=== PATIENT | male | born 1930 | race Caucasian/White ===

== ENCOUNTER 2019-01-24 20:21 | Inpatient (IN) | payer MEDICARE, OTHER ==
[2019-01-24] MEDS ORDERED: NS 0.9% 1000 ML** 1,000 ML IV ONE (20:45)
--- OUTSIDE RECORDS SUMMARY | 2019-01-24 20:53 | XMS REPORT | Continuity of Care Document ---
:1930 External Reference #:[id number] Author Name Ronal Jaramillo M.D. (transmitted by agent of provider Abi Boykin ) Address [address] [place] [address] Care Team Providers Name Role Phone Ronal Jaramillo MD - Cardiovascular Care Team Information Music Worker Disease Inderjit Banegas III, MD - Internal Care Team Information Music Worker Medicine Problems Active Problems Provider Date Benign essential hypertension Ronal Jaramillo M.D. Onset: 04/01/2012 Mitral valve disorder Ronal Jaramillo M.D. Onset: 04/01/2012 Coronary arteriosclerosis Ronal Jaramillo M.D. Onset: 04/01/2012 Pure hypercholesterolemia Ronal Jaramillo M.D. Onset: 04/01/2012 Syncope and collapse LAUREN Main Onset: 05/25/2013 Essential hypertension Ronal Jaramillo M.D. Onset: 12/27/2013 Dizziness and giddiness Ronal Jaramillo M.D. Onset: 12/27/2013 Coronary artery bypass grafts x 3 Marko Merritt M.D.,STEVE Onset: 2017 Note: 2001 History of radical retropubic Marko Merritt M.D.,FACP Onset: 06/03/2017 prostatectomy Note: for cancer Social History Type Date Description Comments Sex Unknown Tobacco Use Start: Unknown End: Former Cigarette Smoker Unknown ETOH Use Drinks 2 Alcoholic pt doesn't measure Beverages Per Day the liquor and each drink likely over 2 oz Tobacco Use Start: Unknown End: Patient is a former Unknown smoker Recreational Drug Use Denies Drug Use Tobacco Use Start: Unknown quit at the age of 32 Smoking Status Reviewed: 11/29/18 quit at the age of 32 Exercise Type/Frequency Exercises regularly Treadmill, wt lifting,stretching, one hr 3-4x/wk Allergies, Adverse Reactions, Alerts Description No Known Drug Allergies Medications Active Medications SIG Qnty Indications Ordering Provider Date Amlodipine Besylate 1 by mouth twice 180tabs Ronal Doll 02/19/2014 a day Kelsy Jaramillo 2.5mg Tablets Aspirin Enteric qd Roanl Doll 05/17/2003 Coated Kelsy Jaramillo 81mg Tablets Lipitor one tab by mouth 90tabs Ronal Doll 20mg Tablets every night at Kelsy Jaramillo bedtime Immunizations CPT Code Status Date Vaccine Lot # [id number] Given 08/22/2018 Pneumococcal Conjugate Vaccine 13 Valent For [id number] Intramuscular Use 06091 Given 12/17/2017 Fluzone High Dose 85847 Given 12/03/2016 Influenza Virus Vaccine, Quadrivalent, Split, [id number] Preservative Free Vital Signs Date Vital Result Comment 11/29/2018 9:02am Height 64.5 inches 5'4.50" Weight 140.00 lb Heart Rate 72 /min L, radial, regular BP Systolic 150 mmHg LA, home unit, sitting BP Diastolic 77 mmHg LA, home unit, sitting BP Systolic Sitting 145 mmHg LA, reg cuff BP Diastolic Sitting 80 mmHg LA, reg cuff BP Systolic Standing 145 mmHg LA, reg cuff BP Diastolic Standing 70 mmHg LA, reg cuff BP Systolic Lying Down 139 mmHg la repeat sitting BP Diastolic Lying Down 64 mmHg la repeat sitting BMI (Body Mass Index) 23.7 kg/m2 Ejection Fraction 60-65% 09/28/2018 1:25pm Height 64.5 inches 5'4.50" Heart Rate 68 /min radial, regular BP Systolic 168 mmHg Ra sitting, reg cuff BP Diastolic 72 mmHg Ra sitting, reg cuff BP Systolic Sitting 166 mmHg LA sitting, reg cuff BP Diastolic Sitting 70 mmHg LA sitting, reg cuff BP Systolic Standing 170 mmHg Ra sitting, home cuff BP Diastolic Standing 80 mmHg Ra sitting, home cuff BP Systolic Lying Down 159 mmHg LA sitting, home cuff BP Diastolic Lying Down 73 mmHg LA sitting, home cuff BP Systolic Recheck 168 mmHg LA standing, reg cuff BP Diastolic Recheck 74 mmHg LA standing, reg cuff Results Test Date Facility Test Result H/L Range Note Comp Metabolic 08/17/2018 [facility] Sodium 140 mmol/L Normal 135-[address] [place] [address] [phone] Potassium 4.9 mmol/L Normal 3.5-5.0 Chloride 104 mmol/L Normal 101-111 Co2 Carbon Dioxide 30 mmol/L Normal 22-32 Anion Gap 6 mmol/L Normal 2-11 Glucose 92 mg/dL Normal 70-100 Blood Urea Nitrogen 18 mg/dL Normal 6-24 Creatinine 0.90 mg/dL Normal 0.67-1.17 BUN/Creatinine Ratio 20.0 Normal 8-20 Calcium 9.1 mg/dL Normal 8.6-10.3 Total Protein 6.9 g/dL Normal 6.4-8.9 Albumin 4.2 g/dL Normal 3.2-5.2 Globulin 2.7 g/dL Normal 2-4 Albumin/Globulin Ratio 1.6 Normal 1-3 Total Bilirubin 1.30 mg/dL High 0.2-1.0 Alkaline Phosphatase 94 U/L Normal 34-104 Alt 16 U/L Normal 7-52 Ast 23 U/L Normal 13-39 Egfr Non- 79.6 >60 Egfr 96.4 >60 1 1 Because ethnic data is not always readily available, this report includes an eGFR for both -Americans and non- Americans. The National Kidney Disease Education Program (NKDEP) does not endorse the use of the MDRD equation for patients that are not between the ages of 18 and 70, are , have extremes of body size, muscle mass, or nutritional status, or are non- or non-. According to the National Kidney Foundation, irrespective of diagnosis, the stage of the disease is based on the level of kidney function: Stage Description GFR(mL/min/1.73 m(2)) 1 Kidney damage with normal or decreased GFR 90 2 Kidney damage with mild decrease in GFR 60-89 3 Moderate decrease in GFR 30-59 4 Severe decrease in GFR 15-29 5 Kidney failure <15 (or dialysis) Procedures Date Code Description Status 11/29/2018 41911 EKG Tracing & Interpretation Completed 03/11/2010 17853042 Colonoscopy Completed 05/18/2002 29471536 Colonoscopy Completed Medical Devices Description No Information Available Encounters Type Date Location Provider Dx Diagnosis Office Visit 09/28/2018 [facility] Nurse Visit cc I10 Essential ( primary) 1:00p hypertension Assessments Date Code Description Provider 11/29/2018 I10 Essential (primary) hypertension Ronal Jaramillo M.D. 11/29/2018 E78.00 Pure hypercholesterolemia, unspecified Ronal Jaramillo M.D. 11/29/2018 I35.0 Nonrheumatic aortic (valve) stenosis Ronal Jaramillo M.D. 11/29/2018 I25.10 Coronary atherosclerosis Ronal Jaramillo M.D. 11/29/2018 I44.0 First degree atrioventricular block Ronal Jaramillo M.D. 09/28/2018 I10 Essential (primary) hypertension Nurse Visit cc 08/22/2018 Z00.00 Encounter for general adult medical Inderjit Banegas M.D. examination without abno 08/22/2018 I10 Essential (primary) hypertension Inderjit Banegas M.D. 08/22/2018 I25.10 Atherosclerotic heart disease of upper [place] Inderjit Banegas M.D. coronary artery with 08/22/2018 E78.00 Pure hypercholesterolemia, unspecified Inderjit Banegas M.D. 08/22/2018 Z85.46 Personal history of malignant neoplasm of Inderjit Banegas M.D. prostate 08/22/2018 Z23 Encounter for immunization Inderjit Banegas M.D. Plan of Treatment Future Appointment(s):12/02/2018 10:00 am - [facility] ECHO Schedule at [facility]08/24/2019 1:20 pm - Inderjit Banegas M.D. at [facility]-Znbuqieiw58/08/2019 - Ronal Jaramillo M.D.I10 Essential ( primary) [id number] Pure hypercholesterolemia, gvfdbvcskhwI48.0 Nonrheumatic aortic (valve) stenosisNew Orders:Echocardiogram, Scheduled: I25.10 Coronary atherosclerosisNew Orders:Stress Test, Exercise Nuclear, Ordered: 11/29/18Follow up:ov 10 mI44.0 First degree atrioventricular block Functional Status Description No Information Available Mental Status Description No Information Available Referrals Description No Information Available
--- NOTE | 2019-01-24 21:03 | ED ---
Complex/Multi-Sys Presentation - HPI Summary HPI Summary: Patient is an 88 y/o M presenting to [facility] via EMS with complaints of light- headedness and near syncopal episode. He states that he has been feeling fatigued all day, 01/24/19. He states that he was in his living room, sitting at a table and waiting for dinner when the episode occurred. Family called EMS. It is reported that the patient was diaphoretic, pale-appearing, and with decreased responsiveness. Currently, the patient states that he feels "weak". This weakness is characterized as a general, non-focal weakness. He is alert and oriented x3. CP, SOB, NUNEZ, cold Sx, abdominal pain, nausea, urinary retention , BLE edema are denied. On triage, pain is denied, nothing is noted to aggravate /alleviate Sx. PMHx of HTN reported, diabetes denied. PSHx of cardiac bypass 20 years ago stated. Home medications and allergies are reviewed. - History Of Current Complaint Chief Complaint: EDSyncope Time Seen by Provider: 01/24/19 20:40 Hx Obtained From: Patient Onset/Duration: Lasting Days - fatigue, Still Present - fatigue, Resolved - no longer diaphoretic, pale-appearing, and with decreased responsiveness Timing: Intermittent, Lasting: Severity Currently: None - pain denied Aggravating Factor(s): nothing Alleviating Factor(s): nothing Associated Signs And Symptoms: Positive: Other - positive - near syncope, light- headedness, diaphoretic, pale-appearing, decerased responsiveness since resolved ; negative - CP, SOB, NUNEZ, cold Sx, abdominal pain, nausea, urinary retention, BLE edema. Negative: Headache, SOB, Chest Pain, Edema, Nausea, Abdominal Pain - Allergies/Home Medications Allergies/Adverse Reactions: Allergies Allergy/AdvReac Type Severity Reaction Status Date / Time No Known Allergies Allergy Verified 01/24/19 22:21 Home Medications: Home Medications Amlodipine Besylate [Amlodipine 2.5 mg tab] 2.5 mg PO DAILY 01/24/19 [History Confirmed 01/24/19] PMH/Surg Hx/FS Hx/Imm Hx Cardiovascular History: Reports: Hx Hypertension, Other Cardiovascular Problems/ Disorders - vaso-vagal History: Reports: Hx Benign Prostatic Hyperplasia, Other Problems/ Disorders - prostate CA c/incontinence Musculoskeletal History: Reports: Hx Arthritis Sensory History: Reports: Hx Contacts or Glasses, Hx Hearing Aid - ai., Hx Hearing Problem Opthamlomology History: Reports: Hx Contacts or Glasses - Cancer History Cancer Type, Location and Year: prostate - Surgical History Surgery Procedure, Year, and Place: CABG quad 1999, radical prostatectomy 2000 Infectious Disease History: No Infectious Disease History: Reports: Traveled Outside the [place] in Last 30 Days - [place], [place] - Family History Known Family History: Negative: Cardiac Disease, Hypertension, Diabetes - Social History Alcohol Use: Daily Alcohol Amount: glass of wine with dinner Substance Use Type: Reports: None Smoking Status (MU): Former Smoker Type: Cigarettes Amount Used/How Often: 1pk per day Length of Time of Smoking/Using Tobacco: 10years Have You Smoked in the Last Year: No Review of Systems Positive: Skin Diaphoresis ENT: Other - neg - cold Sx Negative: Chest Pain Negative: Shortness Of Breath Negative: Abdominal Pain, Nausea Genitourinary: Other - neg - urinary retention Negative: Edema - BLE Skin: Other - pos - pale appearing Neurological: Other - pos - decreased responsiveness and light-headedness Positive: Syncope - near . Negative: Headache All Other Systems Reviewed And Are Negative: Yes Physical Exam - Summary Physical Exam Summary: Appearance: Well-appearing, Well-nourished, lying in bed comfortably Skin: Warm, dry, no obvious rash Eyes: sclera anicteric, no conjunctival pallor ENT: mucous membranes moist, pharynx appears normal Neck: Supple, nontender Respiratory: Clear to auscultation, no signs of respiratory distress Cardiovascular: Normal S1, S2. No murmurs. Normal distal pulses in tibial and radial bilaterally. Abdomen: Soft, nontender, normal active bowel sounds present Musculoskeletal: Normal, Strength/ROM Intact Neurological: A&Ox3, awake and alert, mentation is normal, speech is fluent and appropriate Psychiatric: affect is normal, does not appear anxious or depressed Triage Information Reviewed: Yes Vital Signs On Initial Exam: Initial Vitals Temp Pulse Resp BP Pulse Ox 98.0 F 64 18 161/64 95 01/24/19 20:36 01/24/19 20:36 01/24/19 20:36 01/24/19 20:36 01/24/19 20:36 Vital Signs Reviewed: Yes Procedures - Sedation Patient Received Moderate/Deep Sedation with Procedure: No Diagnostics - Vital Signs Vital Signs Temp Pulse Resp BP Pulse Ox 01/24/19 20:36 98.0 F 64 18 161/64 95 - Laboratory Result Diagrams: 01/25/19 05:23 01/25/19 05:23 Lab Statement: Any lab studies that have been ordered have been reviewed, and results considered in the medical decision making process. - Radiology CXR Radiology Interpretation Completed By: ED Physician Summary of Radiographic Findings: CXR showed no acute process, pending official report. - EKG 2101 Cardiac Rate: NL - rate of 72 BPM EKG Rhythm: Sinus Rhythm Summary of EKG Findings: EKG showed NSR at 72 BPM, P waves, QRS complex, and T waves are within normal limits, T waves and intervals are normal, no ischemic changes, no STEMI. This is a normal EKG. ED physician has reviewed and interpreted this EKG. Complex Multi-Symp Course/Dx Course Of Treatment: Patient is an 88 y/o M presenting to [facility] via EMS with complaints of light-headedness and near syncopal episode. He states that he has been feeling fatigued all day, 01/24/19. He states that he was in his living room , sitting at a table and waiting for dinner when the episode occurred. Family called EMS. It is reported that the patient was diaphoretic, pale-appearing, and with decreased responsiveness. Currently, the patient states that he feels "weak". This weakness is characterized as a general, non-focal weakness. CP, SOB , NUNEZ, cold Sx, abdominal pain, nausea, urinary retention, BLE edema are denied. PMHx of HTN reported, diabetes denied. PSHx of cardiac bypass 20 years ago stated. EKG showed NSR at 72 BPM, P waves, QRS complex, and T waves are within normal limits, T waves and intervals are normal, no ischemic changes, no STEMI. This is a normal EKG. CXR showed no acute process. Bloodwork was obtained. Trop was 0.32. Other abnormal values include WBC 11.9, RBC 3.78, hgb 12, Hct 35, MCH 32, absolute neuts 10.1, absolute lymphs 0.8, absolute monos 1, sodium 133, chloride 100, glucose 126, magnesium 1.6, total bilirubin 1.6, alk phos 105. During ED course, patient received fluids. 2238 - Discussed case with Dr. Reyes, he recommends heparin overnight and admission. 2244 - Patient's case was discussed with Dr. You, Dr. You accepts for admission. - Diagnoses Provider Diagnoses: Near syncope, Elevated troponin - Physician Notifications Discussed Care Of Patient With: Manjinder You Time Discussed With Above Provider: 22:39 Instructed by Provider To: Other - 2238 - Discussed case with Dr. Reyes, he recommends heparin overnight and admission. 2244 - Patient's case was discussed with Dr. You, Dr. You accepts for admission. - Critical Care Time Critical Care Time: 30-74 min Discharge ED - Sign-Out/Discharge Documenting (check all that apply): Patient Departure - admit - Discharge Plan Condition: Stable Disposition: ADMITTED TO [facility] - Billing Disposition and Condition Condition: STABLE Disposition: Admitted to [facility] - Attestation Statements Document Initiated by Terrence: Yes Documenting Scribe: AGUSTIN MARTIN Provider For Whom Terrence is Documenting (Include Credential): RASHARD FLOWERS MD Scribe Attestation: AGUSTIN Hutchins, scribed for RASHARD FLOWERS MD on 01/26/19 at 0501. Scribe Documentation Reviewed: Yes Provider Attestation: The documentation as recorded by the AGUSTIN gamboa accurately reflects the service I personally performed and the decisions made by me, RASHARD FLOWERS MD Status of Scribanthoyn Document: Viewed
[2019-01-24 21:29] LABS: ABS Basophils 0.1 10^3/ul (0-0.2); ABS Lymphocytes 0.8 10^3/ul (1.0-4.8); ABS Neutrophils 10.1 10^3/ul (1.5-7.7); Hematocrit 35 % (42-52); Lymphocyte % 6.3 %; Mean Corpuscular HGB Conc 34 g/dL (31-36); Mean Corpuscular Hemoglobin 32 pg (27-31); Mean Corpuscular Volume 94 fL (80-94); Mean Platelet Volume 9.2 fL (7.4-10.4); Platelet Count 191 10^3/uL (150-450); Red Blood Count 3.78 10^6 /uL (4.18-5.48); Red Cell Distribution Width 13 % (10-15); White Blood Count 11.9 10^3/uL (3.5-10.8)
[2019-01-24 21:53] LABS: ALT 16 U/L (7-52); AST 23 U/L (13-39); Albumin 3.8 g/dL (3.2-5.2); Albumin/Globulin Ratio 1.3 (1-3); Alkaline Phosphatase 105 U/L (34-104); Anion Gap 7 mmol/L (2-11); BUN/Creatinine Ratio 16.2 (8-20); Blood Urea Nitrogen 16 mg/dL (6-24); CO2 Carbon Dioxide 26 mmol/L (22-32); Calcium 8.6 mg/dL (8.6-10.3); Chloride 100 mmol/L (101-111); EGFR African American 86.3 (>60); EGFR Non-African American 71.3 (>60); Glucose 126 mg/dL (70-100); Magnesium 1.6 mg/dL (1.9-2.7); Potassium 4.9 mmol/L (3.5-5.0); Sodium 133 mmol/L (135-145); Total Protein 6.8 g/dL (6.4-8.9)
[2019-01-24 21:55] LABS: Troponin I 0.32 ng/mL (<0.03)
[2019-01-24 22:09] LABS: TSH (Thyroid Stimulating Horm) 2.24 mcIU/mL (0.34-5.60)
[2019-01-24 22:24] LABS: Urine Appearance Clear; Urine Bilirubin Negative (Negative); Urine Blood Negative (Negative); Urine Color Yellow; Urine Glucose Negative (Negative); Urine Ketones 1+ (Negative); Urine Nitrite Negative (Negative); Urine Protein Negative (Negative); Urine Specific Gravity 1.011 (1.010-1.030); Urine Urobilinogen Negative (Negative)
[2019-01-24] MEDS: Heparin VIAL(*) 5000 UNITS/ML VIAL (FIVE THOUSAND) IV SCH (23:48)
[2019-01-24 23:50] LABS: ABS Basophils 0.1 10^3/ul (0-0.2); ABS Lymphocytes 0.9 10^3/ul (1.0-4.8); ABS Monocytes 0.7 10^3/ul (0-0.8); ABS Neutrophils 10.5 10^3/ul (1.5-7.7); Hematocrit 34 % (42-52); Hemoglobin 11.6 g/dL (14.0-18.0); Lymphocyte % 7.6 %; Mean Corpuscular HGB Conc 34 g/dL (31-36); Mean Corpuscular Hemoglobin 32 pg (27-31); Mean Corpuscular Volume 94 fL (80-94); Mean Platelet Volume 8.9 fL (7.4-10.4); Platelet Count 203 10^3/uL (150-450); Red Blood Count 3.64 10^6 /uL (4.18-5.48); Red Cell Distribution Width 13 % (10-15); White Blood Count 12.2 10^3/uL (3.5-10.8)
[2019-01-24] MEDS: Heparin DRIP 25,000 UNITS(*) 25,000 UNITS/500 ML BAG IV SCH (23:53)
[2019-01-25 00:16] LABS: Blood Urea Nitrogen 15 mg/dL (6-24); EGFR African American 100.2 (>60); EGFR Non-African American 82.8 (>60)
[2019-01-25 00:25] LABS: Troponin I 0.31 ng/mL (<0.03)
--- NOTE | 2019-01-25 00:51 | HP ---
CC: Dr. Inderjit Banegas; Dr. Reyes * HISTORY AND PHYSICAL: DATE OF ADMISSION: 01/24/19 PRIMARY CARE PHYSICIAN: Dr. Inderjit Banegas. CHIEF COMPLAINT: Syncope. HISTORY OF PRESENT ILLNESS: This is an 88-year-old gentleman with past medical history of coronary artery disease, status post coronary artery bypass grafting ; hypertension; dyslipidemia; prostate cancer, status post prostatectomy, came in after experiencing a syncopal episode. The patient himself was not sure of the full details but stated that he has been feeling unwell all day and while at home having dinner, he became diaphoretic, pale, and lightheaded and felt like he was about to pass out. The patient states that he passed out until he reached the ER, however, according to the EMS reports, the patient never passed out. The patient denies any chest pain, dizziness, shortness of breath, nausea , vomiting, or headache. The patient did feel drowsy upon arrival, but during my evaluation he was completely back to his senses, no longer was diaphoretic or having any symptoms. He otherwise denies any other symptomatology at this point and stating that all his symptoms prior to arrival have resolved. The patient was noted to have elevated troponin and Cardiology suggested starting the patient on heparin infusion and admission to the hospital for an NSTEMI. PAST MEDICAL HISTORY: As mentioned coronary artery disease, status post coronary artery bypass grafting; hypertension; dyslipidemia; prostate cancer, status post prostatectomy. PAST SURGICAL HISTORY: Coronary artery bypass grafting and prostatectomy as mentioned. HOME MEDICATIONS: The patient is only on currently: 1. Amlodipine 2.5 mg oral daily. 2. Lipitor 20 mg oral daily. 3. Aspirin 81 mg oral daily. ALLERGIES: No known drug allergies. FAMILY HISTORY: Given his age of 88 is noncontributory, but the patient does have history of mom lived up to age 88 and dad of an [place] in his 50s. SOCIAL HISTORY: He drinks about a cocktail every night. He is a former smoker , quit 50 years ago. Lives with his , Clara, who is his surrogate decision maker and his daughter, Brie, is the secondary surrogate decision maker after his . He is otherwise full code. REVIEW OF SYSTEMS: A 14-point review of systems did not reveal any information other than what is mentioned in the HPI. PHYSICAL EXAMINATION GENERAL: The patient is awake, alert, and oriented x3, did not appear to be in any acute distress. VITAL SIGNS: In the ER, BP was noted to be elevated 170/82, heart rate 74, respiration rate 19, saturating 98% on room air. Temperature was recorded at 98 degrees Fahrenheit. HEAD AND NECK: Atraumatic, normocephalic. Bilateral pupils reactive. Oral mucosa was dry. Neck supple. No jugular venous distention. LUNGS: Clear to auscultation bilaterally. No wheezing, rhonchi or rales. HEART: There was a systolic murmur radiating to the carotids, which is rated at 4/6 intensity. ABDOMEN: Soft, nontender, nondistended. EXTREMITIES: No cyanosis, clubbing, or edema. There are previous surgical scars from the extraction of the vein for his bypass graft. DIAGNOSTIC STUDIES/LAB DATA: CBC shows mildly elevated white count of 11.9, hemoglobin and hematocrit stable, platelet count was stable. Comprehensive metabolic panel was unremarkable except for elevated troponin at 0.32. LFTs were within normal limits. Magnesium minimally decreased at 1.6. Lactic acid was noted to be normal at 0.7. TSH normal at 2.24. Urinalysis was positive for 1+ ketones, but otherwise negative for any nitrites or leuk esterase. EKG showed sinus rhythm at 72 beats per minute. When compared to his older EKG from 2014, the overall waveforms are essentially unchanged. Chest x-ray shows some sternotomy sutures from his old bypass graft, otherwise no obvious infiltrate. There was a rotated image, which shows left hemidiaphragm being slightly more elevated. When compared to his older chest x- ray, there were no new infiltrates that I could appreciate and even laterally there was no infiltrates or any effusion that I could appreciate. IMPRESSION: This is an 88-year-old gentleman here with syncopal episode, noted to have minimally elevated troponin, started on ACS protocol with heparin infusion protocol per Cardiology. ASSESSMENT: 1. Syncopal episode, unclear if this is related to the non-ST elevation myocardial infarction versus aortic stenosis based on the murmur I heard on exam. For now, we will continue the heparin infusion protocol and get serial cardiac enzymes. Get an echocardiogram in the a.m. and cardiology consults regarding any stress test versus a cardiac cath. Follow up carotid Dopplers as well to rule out any carotid stenosis. 2. History of hypertension. Restart BP medications. 3. History of dyslipidemia. Restart statins. We will also do a fasting lipid profile. 4. History of coronary artery disease, status post coronary artery bypass graft. Continue aspirin. 5. DVT prophylaxis: The patient is already on heparin infusion protocol. 6. Code status: The patient is full code. [id number]/CPS #: [id number] [id number]
[2019-01-25] MEDS: NS 0.9% 1000 ML** 1,000 ML IV SCH ×2 (01:23→17:39)
[2019-01-25 05:33] LABS: ABS Basophils 0.1 10^3/ul (0-0.2); ABS Lymphocytes 1.8 10^3/ul (1.0-4.8); ABS Neutrophils 6.7 10^3/ul (1.5-7.7); Eosinophil % 0.2 %; Hematocrit 33 % (42-52); Hemoglobin 11.2 g/dL (14.0-18.0); Lymphocyte % 18.4 %; Mean Corpuscular HGB Conc 34 g/dL (31-36); Mean Corpuscular Hemoglobin 32 pg (27-31); Mean Corpuscular Volume 94 fL (80-94); Nucleated Red Blood Cells % 0.1; Platelet Count 201 10^3/uL (150-450); Red Blood Count 3.53 10^6 /uL (4.18-5.48); Red Cell Distribution Width 13 % (10-15); White Blood Count 9.6 10^3/uL (3.5-10.8)
[2019-01-25 05:51] LABS: Anion Gap 5 mmol/L (2-11); BUN/Creatinine Ratio 17.9 (8-20); Blood Urea Nitrogen 15 mg/dL (6-24); CO2 Carbon Dioxide 26 mmol/L (22-32); Calcium 8.4 mg/dL (8.6-10.3); Chloride 102 mmol/L (101-111); Cholesterol 98 mg/dL; EGFR African American 104.3 (>60); EGFR Non-African American 86.2 (>60); Glucose 104 mg/dL (70-100); HDL Cholesterol 34.5 mg/dL; LDL Cholesterol 54 mg/dL; Potassium 4.2 mmol/L (3.5-5.0); Sodium 133 mmol/L (135-145); Triglycerides 50 mg/dL
[2019-01-25 05:57] LABS: Troponin I 0.47 ng/mL (<0.03)
[2019-01-25] MEDS ORDERED: Magnesium Sulfate 2 GM IV* 2 GM/50 ML BAG IVPB ONE (07:20)
--- NOTE | 2019-01-25 07:50 | PN ---
Subjective Date of Service: 01/25/19 Interval History: HD 2 on 01/25 88 M y/o M with PMH of CAD(sa/p CABG), HTN, HLD and prostate cancer s/p prostatectomy presented after syncopal episode before having dinner and preceeded by weakness. FOund to have systolic murmur and elevated troponin. On heparin drip. D/D include Aortic stenosis, ACS, Heart block. Vitals stable Patient seen at bedsite and was sleeping. He denied any complaint and said night went well. When asked he said that his day was rough as he was feeling weak all day and he passed out yesterday before having dinner with no prodorme. He added that this is his 4-5 syncope episodes and lst one was few year ago and was told that it was because of dehydration. He sees Dr. Jaramillo and last visit was 1 month ago before he went for a trip to [facility] and [facility] and returned 2 weeks ago. Objective Active Medications: Amlodipine Besylate (Norvasc Tab*) 2.5 mg PO DAILY [facility] Aspirin (Aspirin Ec Tab*) 81 mg PO DAILY [facility] Atorvastatin Calcium (Lipitor*) 20 mg PO DAILY [facility] Heparin Sodium (Porcine) (Heparin Vial(*)) 0 units IV .PER PROTOCOL [facility] Last Admin: 01/24/19 23:48 Dose: 3,800 units Heparin Sodium/Dextrose (Heparin Drip 25,000 Units(*)) 25,000 units in 500 mls @ 0 mls/hr IV PER RATE [facility]; Protocol Last Admin: 01/24/19 23:53 Dose: 15 mls/hr Sodium Chloride (Ns 0.9% 1000 Ml) 1,000 mls @ 75 mls/hr IV PER RATE [facility] Last Admin: 01/25/19 01:23 Dose: 75 mls/hr Magnesium Sulfate (Magnesium Sulfate 2 Gm Iv*) 2 gm in 50 mls @ 50 mls/hr IVPB ONCE ONE Stop: 01/25/19 08:19 Vital Signs - 8 hr 01/25/19 01/25/19 01/25/19 00:00 00:12 00:14 Temperature Pulse Rate 72 70 73 Respiratory 15 16 15 Rate Blood Pressure 150/66 (mmHg) O2 Sat by Pulse 96 96 96 Oximetry 01/25/19 01/25/19 01/25/19 00:17 00:42 00:44 Temperature 98.6 F 98.6 F Pulse Rate 73 73 Respiratory 16 16 Rate Blood Pressure 138/68 138/68 (mmHg) O2 Sat by Pulse 95 95 Oximetry 01/25/19 01/25/19 01:09 03:24 Temperature 97.8 F 97.5 F Pulse Rate 70 67 Respiratory 18 16 Rate Blood Pressure 148/55 123/64 (mmHg) O2 Sat by Pulse 97 98 Oximetry Oxygen Devices in Use Now: None Exam: Patient is lying on a bed in supine position and is not in acute distress. HEENT: Normocephalic and atraumatic. Sclera anicteric. EOMI. PERRLA. Neck: No lymphadenopathy and enlarged thyroid. NO JVD elevation. Lungs: Good respiratory effort and chest expansion. Clear with no added sound. Heart: Midline scar present. Normal in rate and rhythm. S1/S2 heard with systolic murmur more pronounced on left upper sternal border. Abdomen: Soft, nondistended and nontender. Extremities; No swelling, cyanosis or clubbing. Neuro: Alert, oriented and coperative. CN intact. Motor nomral and sensation intact. Result Diagrams: 01/25/19 05:23 01/25/19 05:23 Assess/Plan/Problems-Billing Assessment: 88 M y/o M with PMH of CAD(sa/p CABG), HTN, HLD and prostate cancer s/p prostatectomy presented after syncopal episode while having dinner and preceeded by diaphoresis, pale and light headedness. Found to have systolic murmur and elevated troponin. On heparin drip. D/D include Aortic stenosis, ACS, Heart block. - Patient Problems (1) Syncope Current Visit: Yes Status: Acute Code(s): R55 - SYNCOPE AND COLLAPSE SNOMED Code(s): 469094258 Comment: -had no prodorme; was before having dinner -has history of CAD s/p CABG -Denies chest pain, dizziness and shortness of breath -has systolic murmur -D/D includes Aortic stenosis, ACS, Heart block. -Blood glucose normal on arrival -Echo results pending -Carotid doppler shows 50-69% stenosis with anterograde flow. -Appreciate cardio consult (2) Elevated troponin Current Visit: Yes Status: Acute Code(s): R79.89 - OTHER SPECIFIED ABNORMAL FINDINGS OF BLOOD CHEMISTRY SNOMED Code(s): 072400703 Comment: -Downtrending now. -Could be from demand ischemia; although could be from NSTEMI as well -We will wait for Echo results for , LVOT and RWMA. -Asymptomatic at present -Dr. Solitario was contacted in ED and recommended Heparin drip; given high suspicion of NSTEMI. (3) Anemia Current Visit: Yes Status: Acute Code(s): D64.9 - ANEMIA, UNSPECIFIED SNOMED Code(s): 067202633 Comment: -He has chronic normocytic anemia. -No workup -We will order iron studies (4) Hypomagnesemia Current Visit: Yes Status: Acute Code(s): E83.42 - HYPOMAGNESEMIA SNOMED Code(s): 508300792 Comment: -repleting -will monitor electrolytes (5) Hypertension Current Visit: Yes Status: Acute Code(s): I10 - ESSENTIAL (PRIMARY) HYPERTENSION SNOMED Code(s): 40363730 Comment: -BP on higher side. -Continue Amlodipine 2.5 mg -We will add metoprolol tartate 12.5 mg BID -Goal<130/80 mm Hg (6) DVT prophylaxis Current Visit: Yes Status: Acute Code(s): Z29.9 - ENCOUNTER FOR PROPHYLACTIC MEASURES, UNSPECIFIED SNOMED Code(s): 719442071 Comment: -On heparin drip (7) Full code status Current Visit: Yes Status: Acute Code(s): Z78.9 - OTHER SPECIFIED HEALTH STATUS SNOMED Code(s): 517582488 Status and Disposition: Inpatient Cardio following Attending: Aurora Bedolla Attestation Documenting Resident: Jonathan Reyes Supervising Physician: Aurora Bedolla Attestation: This service has been performed in part by a resident under the direction of a teaching physician.I, Aurora Bedolla, performed the service, or was physically present during the critical, or hensley portions of the service, furnished by the resident. I participated in the management of the patient.
[2019-01-25] MEDS ORDERED: amLODIPine TAB* 5 MG PO SCH (09:00)
[2019-01-25] MEDS: Aspirin EC TAB* 81 MG TAB.EC PO SCH (09:33)
[2019-01-25] MEDS: Atorvastatin* 20 MG TAB PO SCH (09:34)
[2019-01-25 10:02] LABS: Creatine Kinase 110 U/L (10-223)
[2019-01-25 10:02] LABS: Creatine Kinase 114 U/L (10-223)
[2019-01-25 10:05] LABS: CKMB ng/mL 5.6 ng/mL (0.6-6.3)
[2019-01-25 10:05] LABS: CKMB ng/mL 6.4 ng/mL (0.6-6.3)
[2019-01-25 10:05] LABS: Creatine Kinase 136 U/L (10-223)
[2019-01-25 11:03] LABS: Creatine Kinase 130 U/L (10-223)
[2019-01-25 11:08] LABS: CKMB ng/mL 5.5 ng/mL (0.6-6.3)
[2019-01-25 11:13] LABS: Troponin I 0.46 ng/mL (<0.03)
[2019-01-25 12:32] LABS: Creatine Kinase 143 U/L (10-223)
[2019-01-25] MEDS: Heparin VIAL(*) 5000 UNITS/ML VIAL (FIVE THOUSAND) IV SCH (12:37)
[2019-01-25 12:38] LABS: CKMB ng/mL 5.5 ng/mL (0.6-6.3)
[2019-01-25 12:43] LABS: Troponin I 0.38 ng/mL (<0.03)
--- NOTE | 2019-01-25 13:47 | CONS ---
CONSULTATION REPORT: DATE OF CONSULT: 01/25/19 ATTENDING PHYSICIAN: Dr. Iveth Hernandes, Cardiology.* (DICTATED BY ELIZABET SMITH NP) PRIMARY UPHOLSTERY TRIMMER: Dr. Ronal Jaramillo. CHIEF COMPLAINT: Syncope. HISTORY OF PRESENT ILLNESS: This is a pleasant 88-year-old male patient who follows Dr. Ronal Jaramillo of our practice due to a notable history of coronary artery disease with remote bypass x4 in 1998, moderate bilateral internal carotid artery stenosis, prior diverticular bleed in 2014, prostate cancer, hypertension, hyperlipidemia, and mild to moderate aortic insufficiency. The patient states he has been in his usual state of health up until yesterday when he woke up and felt "off, weak." He states that he felt weak throughout the day. He admits to not adequately hydrating himself over the course of 2 to 3 days. Denies nausea, vomiting, diarrhea. He states that yesterday evening around 7 p.m., he sat down to eat dinner. He states he did hydrate himself right before doing so, but perhaps it was too late. Apparently, he developed lightheadedness and had a syncopal episode that was witnessed by his , who called 911. His neighbor is Dr. Kilpatrick whom told was asked to come over to his home to see him. The patient was then transferred to [facility] via EMS. He adds that he does not remember much of the transport ride to [facility], but does remember feeling weak and lightheaded after syncopal episode. He is not sure as to whether or not he hit his head.He did not fall out of chair during the time of syncopal episode. The patient was actually just seen in our practice in November. According to Dr. Jaramillo's office note, he had been noticing generalized weakness and was risk stratified with an exercise nuclear stress test and echocardiogram. Echocardiogram was updated on 12/02/18. Per report, LVEF was 70% with mild left ventricular hypertrophy. There is grade 2 diastolic dysfunction, positive TONE. LVOT velocity was increased to 1.8 mps. There was evidence of a sigmoid symptom. Mild to moderate aortic insufficiency, moderate aortic calcification, trace aortic valve stenosis, mild to moderate mitral valve insufficiency, mild tricuspid insufficiency. Exercise nuclear stress test was updated on 12/02/18. Per report, the patient exercised for 5 minutes, achieving 7 METs. Resting blood pressure was 170/76 and cruz to 184/70. There was 1 to [address] segment depression in leads II, III and aVF and borderline V4 through V6 which returned to baseline around 5 minutes into recovery. No complaints of chest per report. Myocardial perfusion imaging revealed a mild defect that was fixed with mild severity in the mid to distal anterior wall; however, upon review of nuclear imaging, it appears that it is more consistent with diagonal territory. Septum remained normal. TID was 0.91. Resting EF 75%. The patient has not been seen in the practice since his stress test. I am told that it is consistent with his stress echo, which I did request study. It appears in 2012, he had exercise stress echo which was his last ischemic evaluation prior to the stress test updated in November. At that time per office note, there was hypokinesis on echo involving the LAD territory. The patient has had troponin elevation, nonspecific ECG changes, thus we were asked to see the patient in consultation. In the past, he had an abnormal stress test which led to bypass surgery. Thus, he does not have an anginal equivalent. PAST MEDICAL HISTORY: 1. Coronary artery disease. 2. Remote bypass in 1998. 3. Moderate bilateral internal carotid artery disease. 4. Mild aortic stenosis. 5. Hypertrophic obstructive cardiomyopathy with TONE. 6. Hypertension. 7. Hyperlipidemia. 8. Probable diverticular bleed in 2014. 9. Prostate cancer. 10. Mild to moderate aortic insufficiency. PAST SURGICAL HISTORY: Includes: 1. CABG x4 in 1998. 2. Prostatectomy. HOME MEDICATIONS: Listed includes: 1. Aspirin 81 mg a day. 2. Norvasc 2.5 mg a day. 3. Lipitor 20 mg a day. ALLERGIES: No known drug allergies. Denies allergy to aspirin or contrast dye. FAMILY HISTORY: Noncontributory. SOCIAL HISTORY: The patient is , lives at home with his . Former tobacco user, quit 60 years ago. He consumes 1 glass of wine at night. Denies drug use. He exercises regularly approximately 3 times a week at [employer]. Denies exertional symptoms. REVIEW OF SYSTEMS: All systems have been reviewed and otherwise negative except as mentioned in the HPI. PHYSICAL EXAM: The patient is resting upon entering room, appears in no apparent distress, cooperative with examination. He is getting echocardiogram completed. HEENT: Head is atraumatic, normocephalic. Oral mucosa is moist. Tongue is midline. Cardiac: Normal S1, S2. Regular rate and rhythm. There is a diastolic murmur noted across the entire pericardium. No gallop or rub. Lungs: Auscultated posteriorly. No evidence of adventitious breath sounds. Respirations are nonlabored. /GI: Abdomen is soft, nontender, nondistended. Normoactive bowel sounds x4. No hepatomegaly with palpation. Extremities: No pedal edema. No clubbing, no cyanosis. Skin: Intact. No evidence of jaundice, rashes, or ecchymosis appreciated. Peripheral Vascular: 3+ brachial pulse and dorsalis pedis pulse palpated bilaterally and symmetrically. DIAGNOSTIC STUDIES/LAB DATA: Blood work obtained on 01/25/19: White count 19.6 , hemoglobin 11.2, hematocrit 33, platelets 201. INR not obtained. Sodium 133 , potassium 4.2, chloride 102, carbon dioxide 28, BUN 0.84, glucose 104, magnesium 1.6. Total bilirubin 1.6, alk phos 105. Troponin appears to have plateaued at 0.47 as of 0500 on 01/25/19. LDL 54. TSH 2.24. ECG, 01/25/19, reviewed; sinus rhythm, rate [address] segment abnormalities appreciated. Chest x-ray, 01/24/19; per radiology report, no acute cardiopulmonary process identified. ASSESSMENT AND PLAN: 1. Troponin elevation; the patient presented with 1 day history of weakness with syncope that was witnessed. The patient has a history of hypertrophic obstructive cardiomyopathy. Etiology not clear. Differentials include syncope from dynamic outflow tract obstruction. Echocardiogram is pending. We will reassess LVOT gradient. He states that he has not had adequate hydration over the last 2 to 3 days. He was not tachycardic in the emergency department. He has history of hypertension that is not adequately treated. His resting blood pressure during his exercise nuclear stress test systolic was 170. Not clear why the patient is not on beta blockade therapy. We will discontinue amlodipine and start Lopressor 12.5 mg p.o. b.i.d. His exercise nuclear stress test in November revealed a mild reversible defect in the diagonal territory. According to his cardiac catheterization in 1999, he has a known occluded vein graft to diagonal 1. He did not have exercise- induced chest pain per exercise nuclear stress test at that time. Troponin has plateaued at 0.47. We will wait echocardiogram to reassess LVOT gradient and to identify any focal wall motion abnormalities and make further recommendations. CK is not elevated, thus unlikely the syncope is related to known moderate bilateral internal carotid arteries. Peak velocity per duplex last year and the left internal carotid artery was 137 and 129 in the right, more consistent with mild to moderate stenosis. Duplex is currently pending at this time. Continue aspirin and statin therapy. 2. History of hypertrophic obstructive cardiomyopathy with systolic anterior motion; we will initiate beta blockade therapy. Avoid volume contraction and tachycardia. We will start Lopressor 12.5 mg p.o. b.i.d. and reevaluate. If the patient has not had a event monitor, this would be ideal to rule out any ventricular arrhythmias which could cause syncope. 3. History of hypertension, uncontrolled. Given history of above number 2, recommend blood pressure consistently less than 130/80. We will add Lopressor 12.5 mg p.o. b.i.d. and reevaluate. 4. History of moderate bilateral internal carotid artery stenosis, on aspirin and statin therapy, status post syncope. Duplex pending. 5. Disposition: Pending course. Dr. Iveth Hernandes has personally seen and examined the patient and agrees with the above assessment and plan. Thank you for this kind consultation. We will make further recommendations post carotid duplex and echocardiogram. Please do not hesitate to contact our service if any questions or concerns. ELIZABET SMITH NP [id number]/[facility] #: [id number] BOBBY
[2019-01-25 15:35] LABS: CKMB ng/mL 4.9 ng/mL (0.6-6.3)
--- NOTE | 2019-01-25 16:11 | ECHO ---
*[facility]* [place] [address] Fax #: [phone] Transthoracic Echocardiogram Patient: Mingo Altamirano : 1930 Study Date: 01/25/2019 Age: 88 Gender: M HR: 64 bpm Height: 66 in /167.6 cm BSA: 1.71 m^2 Weight: 137.7 lb /62.6 kg BMI: 22.3 kg/m^2 *Jig Grinder: * Willa Aldridge RDCS RN *Referring Physician: * Manjinder You *Reading Physician: * Iveth Hernandes MD Indications: Syncope. History: Murmur. Coronary artery disease. Risk factors: Former tobacco use. Hypertension. Dyslipidemia. Labs, prior tests, procedures, and surgery: Coronary artery bypass grafting. Conclusions Summary: - Left ventricle: -The cavity size is moderately reduced. -Wall thickness is mildly increased. -There is a prominent septal knuckle measuring 1.5 cm. -There is turbulence in the left ventricular outflow tract with mild chordal systolic anterior motion of the mitral valve and no dagger profiles. Systolic function is hyperdynamic. The estimated ejection fraction is 70-75%. Doppler parameters are consistent with elevated ventricular end-diastolic filling pressure. - Right ventricle: Systolic function is normal. - Mitral valve: The posterior mitral valve annulus appears moderately calcified. The leaflets are mildly thickened. There is mild to moderate regurgitation. The mean diastolic gradient is 4.0 mm Hg. The valve area by pressure half-time is 3.1 cm^2. The valve area (LVOT continuity) is 1.6 cm^2. - Aortic valve: The findings are consistent with mild stenosis. There is mild regurgitation. The mean systolic gradient is 8.7 mm Hg. The LVOT to aortic valve VTI ratio is 0.69. The valve area by the velocity-time integral method is 1.75 cm^2. - Tricuspid valve: There is mild-moderate regurgitation. - Pulmonary arteries: Systolic pressure is within the normal range, estimated to be 34 mm Hg. - Compared with echocardiogram of 12/10/18 small left ventricle cavity size is new, ejection fraction is stable, left ventricular outflow tract tubulence and peak velocity are stable, AI previously reported as mid to moderate, mitral regurgitation is stable, MVA previously estimated at 2.2 cm2, tricuspid regurgitation previously mild. Study data: Transthoracic echocardiogram. Procedure: Transthoracic echocardiography was performed. Image quality was good. Complete 2D, spectral Doppler, and color flow Doppler. Location: Bedside. Patient status: Inpatient. Patient room number: 446-01. Rhythm: Normal sinus rhythm. Findings Left ventricle: The cavity size is moderately reduced. Wall thickness is mildly increased. There is a prominent septal knuckle measuring 1.5 cm. There is turbulence in the left ventricular outflow tract with mild chordal systolic anterior motion of the mitral valve and no dagger profiles. The peak velocity is 1.7 m/sec without an increase with Valsalva. Systolic function is hyperdynamic. The estimated ejection fraction is 70-75%. Wall motion is normal; there are no regional wall motion abnormalities. Doppler parameters are consistent with abnormal left ventricular relaxation (grade 1 diastolic dysfunction). Doppler parameters are consistent with elevated ventricular end-diastolic filling pressure. Right ventricle: The cavity size is normal. Systolic function is normal. Ventricular septum: Ventricular septal wall motion has a postoperative appearance. The outflow septum has a sigmoid appearance. Left atrium: The atrium is mildly dilated. Right atrium: The atrium is normal in size. Mitral valve: The posterior mitral valve annulus appears moderately calcified. The leaflets are mildly thickened. There is no evidence of stenosis. There is mild to moderate regurgitation. Aortic valve: The annulus is calcified. The valve is trileaflet. The leaflets are mildly thickened. The NCC appears to have reduced excursion. The findings are consistent with mild stenosis. There is mild regurgitation. Tricuspid valve: The valve is structurally normal. There is no evidence of stenosis. There is mild-moderate regurgitation. 2 jets, one eccentric. Pulmonic valve: The valve is structurally normal. There is no evidence of stenosis. There is trace regurgitation. Aorta: Aortic root: The aortic root is not dilated. Ascending aorta: The ascending aorta is not dilated. Aortic arch: The aortic arch is not dilated. Pericardium: There is no pericardial effusion. Pulmonary arteries: The main pulmonary artery is normal-sized. Systolic pressure is within the normal range, estimated to be 34 mm Hg. Systemic veins: Inferior vena cava: The vessel is normal in size. There is (>= 50%) respiratory change in the IVC dimension. Measurements Left ventricle Value Ref Aortic valve continued Value Ref CRICKET, LAX (L) 3.0 cm 4.2 - VTI, S 41.2 cm ----- 5.8 Mean grad, S 8.7 mm Hg ----- ESD, LAX (L) 1.7 cm 2.5 - Peak grad, S 13.0 mm Hg ----- 4.0 LVOT/AV, VTI ratio 0.69 ----- FS, LAX 43 % 25 - 43 SCOTTY, VTI 1.75 cm^2 ----- PW, ED 0.9 cm 0.6 - SCOTTY, Vmax 1.72 cm^2 ----- 1.0 IVS/PW, ED 1.21 -------- Mitral valve Value Ref E', lat brodie, TDI (L) 8.0 cm/sec >=10.0 Peak E 1.11 m/sec - ---- E/e', lat brodie, TDI 14 -------- Peak A 1.47 m/sec ---- - E', med brodie, TDI (L) 5.0 cm/sec >=7.0 VTI leaflet coapt 44.3 cm - ---- E/e', med brodie, TDI 22 -------- Decel time 254 ms ---- - E', avg, TDI 6.5 cm/sec -------- PHT 71 ms ---- - E/e', avg, TDI (H) 17 <=14 Mean grad, D 4.0 mm Hg - ---- Peak grad, D 11.2 mm Hg ----- LVOT Value Ref Peak E/A ratio 0.76 ----- Diam, S 1.80 cm -------- MVA, PHT 3.1 cm^2 ----- Area 2.5 cm^2 -------- Peak nick, S 1.22 m/sec -------- Pulmonic valve Value Ref VTI, S 28.3 cm -------- Peak v, S 1.01 m/sec ----- Peak grad, S 6 mm Hg -------- Peak grad, S 4.1 mm Hg ----- Mean grad, S 3 mm Hg -------- Tricuspid valve Value Ref Ventricular septum Value Ref TR peak v 2.8 m/sec <=2.8 IVS, ED (H) 1.1 cm 0.6 - Peak RV-RA grad, S 31 mm Hg ----- 1.0 Aortic root Value Ref Right ventricle Value Ref Root diam 3.2 cm <3.9 CRICKET, LAX 2.2 cm -------- CRICKET minor ax, A4C (H) 3.8 cm 1.9 - Ascending aorta Value Ref mid 3.5 AAo AP diam, S 3.3 cm ----- Pressure, S 34 mm Hg -------- Aortic arch Value Ref Left atrium Value Ref Arch diam 2.7 cm ----- LA ID 3.8 cm -------- SI dim ES, LAX 3.8 cm -------- Decending aorta Value Ref ML dim, A4C 4.2 cm -------- Buck peak nick 0.84 m/sec ----- SI dim, A4C 5.6 cm -------- Vol, ES, 2-p 59 ml -------- Pulmonary artery Value Ref Vol/bsa, ES, 2-p (H) 35 ml/m^2 16 - 34 Pressure, S 34.0 mm Hg ----- Right atrium Value Ref Inferior vena cava Value Ref ML dim, ES, A4C 3.6 cm 2.6 - Diam 1.8 cm ----- 4.4 SI dim, ES, A4C 5.0 cm 3.4 - 5.3 Estimated RAP 3 mm Hg -------- Aortic valve Value Ref Peak v, S 1.8 m/sec -------- Legend: (L) and (H) girma values outside specified reference range. Prepared and electronically signed by Iveth Hernandes MD 01/25/2019 16:11
--- NOTE | 2019-01-25 19:46 | CONSULT ---
Subjective Date of Service: 01/25/19 - CC: syncope Interval History: See full dictation from TURBINE ENGINE ASSEMBLER The patient was seen and examined by myself personally. He felt weak, wasn't eating and drinking as usual. Lost consiousness yesterday, similar to past episodes, but he hasn't had one in 3 years he states. No CP, SOB, nausea. He was about to eat lunch, has an appetite. Medications Active Medications: Amlodipine Besylate (Norvasc Tab*) 2.5 mg PO DAILY [facility] Aspirin (Aspirin Ec Tab*) 81 mg PO DAILY [facility] Last Admin: 01/25/19 09:33 Dose: 81 mg Atorvastatin Calcium (Lipitor*) 20 mg PO DAILY [facility] Last Admin: 01/25/19 09:34 Dose: 20 mg Heparin Sodium (Porcine) (Heparin Vial(*)) 0 units IV .PER PROTOCOL [facility] Last Admin: 01/25/19 12:37 Dose: 1,900 units Heparin Sodium/Dextrose (Heparin Drip 25,000 Units(*)) 25,000 units in 500 mls @ 0 mls/hr IV PER RATE [facility]; Protocol Last Admin: 01/24/19 23:53 Dose: 15 mls/hr Sodium Chloride (Ns 0.9% 1000 Ml) 1,000 mls @ 75 mls/hr IV PER RATE [facility] Last Admin: 01/25/19 17:39 Dose: 75 mls/hr Metoprolol Tartrate (Lopressor Tab*) 12.5 mg PO Q12HR [facility] Atorvastatin* [Lipitor*] 20 mg PO DAILY 05/30/12 [History Confirmed 01/24/19] Aspirin EC TAB* [Ecotrin EC Low Dose 81 MG*] 81 mg PO DAILY 08/04/13 [History Confirmed 01/24/19] Amlodipine Besylate [Amlodipine 2.5 mg tab] 2.5 mg PO DAILY 01/24/19 [History Confirmed 01/24/19] Home Medications: Atorvastatin* [Lipitor*] 20 mg PO DAILY 05/30/12 [History Confirmed 01/24/19] Aspirin EC TAB* [Ecotrin EC Low Dose 81 MG*] 81 mg PO DAILY 08/04/13 [History Confirmed 01/24/19] Amlodipine Besylate [Amlodipine 2.5 mg tab] 2.5 mg PO DAILY 01/24/19 [History Confirmed 01/24/19] Review of Systems - Measurements Intake and Output: Intake and Output Last 24 Hours 01/23/19 01/24/19 01/25/19 01/26/19 04:59 04:59 04:59 04:59 Weight 138 lb - Review of Systems Review of Systems Statement: All other review of systems negative, unless stated above. Objective Vital Signs: Temp Pulse Resp BP Pulse Ox 97.9 F 68 22 144/55 97 01/25/19 15:00 01/25/19 15:00 01/25/19 15:00 01/25/19 15:00 01/25/19 15:00 Vital Signs 01/24/19 01/24/19 01/24/19 20:36 20:42 20:43 Temperature 98.0 F Pulse Rate 64 73 68 Respiratory 18 23 15 Rate Blood Pressure 161/64 158/74 (mmHg) O2 Sat by Pulse 95 97 98 Oximetry 01/24/19 01/24/19 01/24/19 21:00 21:12 21:42 Temperature Pulse Rate 71 70 68 Respiratory 13 18 32 Rate Blood Pressure 162/71 162/70 (mmHg) O2 Sat by Pulse 97 97 97 Oximetry 01/24/19 01/24/19 01/24/19 22:00 22:12 22:42 Temperature Pulse Rate 75 75 69 Respiratory 19 19 16 Rate Blood Pressure 170/82 174/77 (mmHg) O2 Sat by Pulse 97 98 96 Oximetry 01/24/19 01/24/19 01/24/19 23:00 23:12 23:42 Temperature Pulse Rate 72 69 Respiratory 17 13 18 Rate Blood Pressure 146/69 150/88 (mmHg) O2 Sat by Pulse 95 96 Oximetry Oxygen Devices in Use Now: None Appearance: [place] gentleman, lying in bed at 60 degrees, appears comfortable. Ears/Nose/Mouth/Throat: Clear Oropharnyx, Mucous Membranes Moist Neck: NL Appearance and Movements; NL JVP Respiratory: Symmetrical Chest Expansion and Respiratory Effort, Clear to Auscultation Cardiovascular: NL Sounds; No Murmurs; No JVD - 2/6 SM RUSB, 1-2/6 SM LSB, with respiratory variation. Abdominal: NL Sounds; No Tenderness; No Distention Skin: No Rash or Ulcers Neurological: Alert and Oriented x 3 Lines/Tubes/Other Access: Clean, Dry and Intact Peripheral IV Laboratory Results: 01/24/19 23:43 01/24/19 23:43 APTT 78.6 seconds (26.0-38.0) H 01/25/19 18:59 Total Bilirubin 1.60 mg/dL (0.2-1.0) H 01/24/19 21:17 AST 23 U/L (13-39) 01/24/19 21:17 ALT 16 U/L (7-52) 01/24/19 21:17 Alkaline Phosphatase 105 U/L (34-104) H 01/24/19 21:17 CK-MB (CK-2) 4.9 ng/mL (0.6-6.3) 01/25/19 15:05 Total Protein 6.8 g/dL (6.4-8.9) 01/24/19 21:17 Albumin 3.8 g/dL (3.2-5.2) 01/24/19 21:17 Globulin 3.0 g/dL (2-4) 01/24/19 21:17 Albumin/Globulin Ratio 1.3 (1-3) 01/24/19 21:17 Triglycerides 50 mg/dL 01/25/19 05:23 Cholesterol 98 mg/dL 01/25/19 05:23 LDL Cholesterol 54 mg/dL 01/25/19 05:23 HDL Cholesterol 34.5 mg/dL 01/25/19 05:23 TSH 2.24 mcIU/mL (0.34-5.60) 01/24/19 21:17 01/24/19 01/24/19 21:17 23:43 Troponin I 0.32 H* 0.31 H* Abnormal Lab Results 01/24/19 01/24/19 01/24/19 21:17 21:17 21:17 WBC 11.9 H RBC 3.78 L Hgb 12.0 L Hct 35 L MCV 94 MCH 32 H MCHC 34 RDW 13 Plt Count 191 MPV 9.2 Neut % (Auto) 85.0 Lymph % (Auto) 6.3 Holmes % (Auto) 8.2 Eos % (Auto) 0.0 Baso % (Auto) 0.5 Absolute Neuts (auto) 10.1 H Absolute Lymphs (auto) 0.8 L Absolute Monos (auto) 1.0 H Absolute Eos (auto) 0.0 Absolute Basos (auto) 0.1 Absolute Nucleated RBC 0.0 Nucleated RBC % 0.0 APTT Sodium 133 L Potassium 4.9 Chloride 100 L Carbon Dioxide 26 Anion Gap 7 BUN 16 Creatinine 0.99 Est GFR ( Amer) 86.3 Est GFR (Non-Af Amer) 71.3 BUN/Creatinine Ratio 16.2 Glucose 126 H Lactic Acid 0.7 Calcium 8.6 Magnesium 1.6 L Total Bilirubin 1.60 H AST 23 ALT 16 Alkaline Phosphatase 105 H Total Creatine Kinase 110 CK-MB (CK-2) 5.6 Troponin I 0.32 H* Total Protein 6.8 Albumin 3.8 Globulin 3.0 Albumin/Globulin Ratio 1.3 TSH 2.24 Urine Color Urine Appearance Urine pH Ur Specific Gillette Urine Protein Urine Ketones Urine Blood Urine Nitrate Urine Bilirubin Urine Urobilinogen Ur Leukocyte Esterase Urine Glucose 01/24/19 01/24/19 01/24/19 22:05 23:43 23:43 WBC RBC Hgb Hct MCV MCH MCHC RDW Plt Count MPV Neut % (Auto) Lymph % (Auto) Holmes % (Auto) Eos % (Auto) Baso % (Auto) Absolute Neuts (auto) Absolute Lymphs (auto) Absolute Monos (auto) Absolute Eos (auto) Absolute Basos (auto) Absolute Nucleated RBC Nucleated RBC % APTT 31.5 Sodium Potassium Chloride Carbon Dioxide Anion Gap BUN 15 Creatinine 0.87 Est GFR ( Amer) 100.2 Est GFR (Non-Af Amer) 82.8 BUN/Creatinine Ratio Glucose Lactic Acid Calcium Magnesium Total Bilirubin AST ALT Alkaline Phosphatase Total Creatine Kinase 114 CK-MB (CK-2) 6.4 H Troponin I 0.31 H* Total Protein Albumin Globulin Albumin/Globulin Ratio TSH Urine Color Yellow Urine Appearance Clear Urine pH 7.0 Ur Specific [place] 1.011 Urine Protein Negative Urine Ketones 1+ A Urine Blood Negative Urine Nitrate Negative Urine Bilirubin Negative Urine Urobilinogen Negative Ur Leukocyte Esterase Negative Urine Glucose Negative 01/24/19 23:43 WBC 12.2 H RBC 3.64 L Hgb 11.6 L Hct 34 L MCV 94 MCH 32 H MCHC 34 RDW 13 Plt Count 203 MPV 8.9 Neut % (Auto) 85.8 Lymph % (Auto) 7.6 Holmes % (Auto) 6.0 Eos % (Auto) 0.0 Baso % (Auto) 0.6 Absolute Neuts (auto) 10.5 H Absolute Lymphs (auto) 0.9 L Absolute Monos (auto) 0.7 Absolute Eos (auto) 0.0 Absolute Basos (auto) 0.1 Absolute Nucleated RBC 0.0 Nucleated RBC % 0.0 APTT Sodium Potassium Chloride Carbon Dioxide Anion Gap BUN Creatinine Est GFR ( Amer) Est GFR (Non-Af Amer) BUN/Creatinine Ratio Glucose Lactic Acid Calcium Magnesium Total Bilirubin AST ALT Alkaline Phosphatase Total Creatine Kinase CK-MB (CK-2) Troponin I Total Protein Albumin Globulin Albumin/Globulin Ratio TSH Urine Color Urine Appearance Urine pH Ur Specific [place] Urine Protein Urine Ketones Urine Blood Urine Nitrate Urine Bilirubin Urine Urobilinogen Ur Leukocyte Esterase Urine Glucose Diagnostic Imaging: valve area (LVOT continuity) is 1.6 cm^2. - Aortic valve: The findings are consistent with mild stenosis. There is mild regurgitation. The mean systolic gradient is 8.7 mm Hg. The LVOT to aortic valve VTI ratio is 0.69. The valve area by the velocity-time integral method is 1.75 cm^2. - Tricuspid valve: There is mild-moderate regurgitation. - Pulmonary arteries: Systolic pressure is within the normal range, estimated to be 34 mm Hg. - Compared with echocardiogram of 12/10/18 small left ventricle cavity size is new, ejection fraction is stable, left ventricular outflow tract tubulence and peak velocity are stable, AI previously reported as mid to moderate, mitral regurgitation is stable, MVA previously estimated at 2.2 cm2, tricuspid regurgitation previously mild. Study data: Transthoracic echocardiogram. Procedure: Transthoracic echocardiography was performed. Image quality was good. Complete 2D, spectral Doppler, and color flow Doppler. Location: Bedside. Patient status: Inpatient. Patient room number: 446-01. Rhythm: Normal sinus rhythm. Findings Left ventricle: The cavity size is moderately reduced. Wall thickness is mildly increased. There is a prominent septal knuckle measuring 1.5 cm. There is turbulence in the left ventricular outflow tract with mild chordal systolic anterior motion of the mitral valve and no dagger profiles. The peak velocity is 1.7 m/sec without an increase with Valsalva. Systolic function is hyperdynamic. The estimated ejection fraction is 70-75%. Wall motion is normal; there are no regional wall motion abnormalities. Doppler parameters are consistent with abnormal left ventricular relaxation (grade 1 diastolic dysfunction). Doppler parameters are consistent with elevated ventricular end-diastolic filling pressure. Right ventricle: The cavity size is normal. Systolic function is normal. Ventricular septum: Ventricular septal wall motion has a postoperative appearance. The outflow septum has a sigmoid appearance. Left atrium: The atrium is mildly dilated. Right atrium: The atrium is normal in size. Mitral valve: The posterior mitral valve annulus appears moderately calcified. The leaflets are mildly thickened. There is no evidence of stenosis. There is mild to moderate regurgitation. Aortic valve: The annulus is calcified. The valve is trileaflet. The leaflets are mildly thickened. The NCC appears to have reduced This report is only to be considered final once signed by the Provider(s) as displayed in the "<Electronically Signed by >" field (s). Absence of a signature indicates the report is in a draft status and still needs to be finalized. In the event this document was created by someone other than the signing Provider, the individual initiating the document will be listed in the "Entered by:" or "Dictated by:" webster. Patient Name: RASHARD MOON Medical Record#: [id number] Ordering Physician: Manjinder You MD Acct.#: [id number] : 1930 Age: 88 Sex: M Location: [address] [place] [address]/TELEMETRY Exam Date: 01/25/192355 ADM Status: ADM IN Order Information: VL CAROTID BILATERAL Accession Number: [id number] CPT: 86495 INDICATION: Syncope COMPARISON: December 07, 2017 carotid ultrasound TECHNIQUE: Multiple grayscale, color and Doppler tracings of the common, internal and external carotid and vertebral arteries were obtained. Stenosis estimations reflect velocity criteria that it been correlated to angiographic stenosis calculations based on the distal internal carotid diameter. RIGHT CAROTID: There is intimal thickening along the common carotid artery with atherosclerotic plaque near the bifurcation The peak systolic velocity in the proximal right internal carotid artery is 101 cm/s and the maximum end-diastolic velocity is 26 cm/s. The peak systolic velocity in the distal right common carotid artery is 118 cm/s and the maximum end-diastolic velocity is 23 cm/s. The internal to common carotid artery ratio is 0.9. The peak systolic velocity in the mid internal carotid artery is 152 cm/s. This is consistent with stenosis of 50-69%. LEFT CAROTID: There is intimal thickening along the common carotid artery with atherosclerotic plaque near the bifurcation. The peak systolic velocity in the proximal left internal carotid artery is 86 cm/s and the maximum end-diastolic velocity is 14 cm/s. The peak systolic velocity in the distal left common carotid artery is 114 cm/s and the maximum end-diastolic velocity is 18 cm/s. The internal to common carotid artery ratio is 0.8. The peak systolic velocity in the mid internal carotid artery is 158 cm/s. This is consistent with stenosis of 50-69%. VERTEBRALS: There is antegrade flow in both vertebral arteries. IMPRESSION: 50-69% STENOSIS IN THE MID INTERNAL CAROTID ARTERIES BILATERALLY BY NASCET CRITERIA. CPT II Codes: 3100F <Electronically signed by Todd Woods MD in OV> 01/25/19 1259 Dictated By: Todd Woods MD Dictated Date/Time: 01/25/19 1253 Transcribed Date/Time: 01/25/19 1253 Copy to: EKG Data: ECG 01/24/19: NSR, mild ST depression lateral leads ECG 01/25/19: NSR normal ST's. Assessment/Plan 88 yo with syncope and mild elevation in trops with: CAD hx distant CABG, hx LVOT obstruction/septal hypertrophy, Carotid disease. This event may have been precipitated by LVOT obstruction from mild dehydration based on history, echo showing small LV cavity diameter, urine + ketones. However, differential of cardiac ischemia+carotid disease leading to weakness and presentation. Differential of tachy or ladonna arrhythmias as well. TURBINE ENGINE ASSEMBLER discussed the case with interventional cardiology, November exercise nuclear stress test reviewed and felt to be c/w known CAD, not planning on cath now. I agree with addition of BB for improved filling time and cardiac protection. Increase hydration. LDL control is good. Out patient monitoring at discharge with EM I recommend. Options to f/u on syncope + troponin elevation could also include stress echo or DSE to look for dynamic LVOT obstruction in addition to wall motion abnormalities For increased weakness, mild elevation of WBC, ensure no infectious or inflammatory process.
[2019-01-25] MEDS: Metoprolol Tartrate TAB* 25 MG PO SCH (20:30)
[2019-01-26] MEDS: Heparin DRIP 25,000 UNITS(*) 25,000 UNITS/500 ML BAG IV SCH (01:01)
[2019-01-26 06:26] LABS: ABS Basophils 0.1 10^3/ul (0-0.2); ABS Eosinophils 0.1 10^3/ul (0-0.6); ABS Lymphocytes 2.1 10^3/ul (1.0-4.8); ABS Monocytes 1.1 10^3/ul (0-0.8); ABS Neutrophils 5.2 10^3/ul (1.5-7.7); Eosinophil % 1.5 %; Hematocrit 33 % (42-52); Hemoglobin 11.3 g/dL (14.0-18.0); Lymphocyte % 24.1 %; Mean Corpuscular HGB Conc 35 g/dL (31-36); Mean Corpuscular Hemoglobin 33 pg (27-31); Mean Corpuscular Volume 93 fL (80-94); Mean Platelet Volume 9.7 fL (7.4-10.4); Platelet Count 190 10^3/uL (150-450); Red Blood Count 3.49 10^6 /uL (4.18-5.48); Red Cell Distribution Width 13 % (10-15); White Blood Count 8.5 10^3/uL (3.5-10.8)
[2019-01-26 06:41] LABS: Anion Gap 3 mmol/L (2-11); BUN/Creatinine Ratio 21.3 (8-20); Blood Urea Nitrogen 20 mg/dL (6-24); CO2 Carbon Dioxide 27 mmol/L (22-32); Calcium 8.4 mg/dL (8.6-10.3); Chloride 108 mmol/L (101-111); EGFR African American 91.6 (>60); EGFR Non-African American 75.7 (>60); Glucose 103 mg/dL (70-100); Potassium 4.2 mmol/L (3.5-5.0); Sodium 138 mmol/L (135-145)
--- NOTE | 2019-01-26 07:28 | PN ---
Subjective Date of Service: 01/26/19 Interval History: HD 3 on 01/26 88 M y/o M with PMH of CAD(sa/p CABG), HTN, HLD and prostate cancer s/p prostatectomy presented after syncopal episode before having dinner and preceeded by weakness. FOund to have systolic murmur and elevated troponin. On heparin drip. D/D include Aortic stenosis, ACS, Heart block. No acute overnight events Vitals stable Patient does not have complaint at present. He wishes to go home. Objective Active Medications: Amlodipine Besylate (Norvasc Tab*) 2.5 mg PO DAILY [facility] Aspirin (Aspirin Ec Tab*) 81 mg PO DAILY [facility] Last Admin: 01/25/19 09:33 Dose: 81 mg Atorvastatin Calcium (Lipitor*) 20 mg PO DAILY [facility] Last Admin: 01/25/19 09:34 Dose: 20 mg Enoxaparin Sodium (Lovenox(*)) 40 mg SUBCUT BEDTIME [facility] Metoprolol Tartrate (Lopressor Tab*) 12.5 mg PO Q12HR [facility] Last Admin: 01/25/19 20:30 Dose: 12.5 mg Vital Signs - 8 hr 01/25/19 01/26/19 23:40 04:09 Temperature 97.7 F 98.7 F Pulse Rate 59 62 Respiratory 16 16 Rate Blood Pressure 141/52 139/52 (mmHg) O2 Sat by Pulse 94 96 Oximetry Oxygen Devices in Use Now: None Exam: Patient is lying on a bed in supine position and is not in acute distress. HEENT: Normocephalic and atraumatic. Sclera anicteric. EOMI. PERRLA. Neck: No lymphadenopathy and enlarged thyroid. NO JVD elevation. Lungs: Good respiratory effort and chest expansion. Clear with no added sound. Heart: Midline scar present. Normal in rate and rhythm. S1/S2 heard with systolic murmur more pronounced on left upper sternal border. Abdomen: Soft, nondistended and nontender. Extremities; No swelling, cyanosis or clubbing. Neuro: Alert, oriented and coperative. CN intact. Motor nomral and sensation intact. Result Diagrams: 01/26/19 05:38 01/26/19 05:38 Assess/Plan/Problems-Billing Assessment: 88 M y/o M with PMH of CAD(sa/p CABG), HTN, HLD and prostate cancer s/p prostatectomy presented after syncopal episode while having dinner and preceeded by diaphoresis, pale and light headedness. Found to have systolic murmur and elevated troponin. On heparin drip. D/D include Aortic stenosis, ACS, Heart block. - Patient Problems (1) Syncope Status: Acute Code(s): R55 - SYNCOPE AND COLLAPSE SNOMED Code(s): 495314610 Comment: -had no prodorme; was before having dinner -has history of CAD s/p CABG -Denies chest pain, dizziness and shortness of breath -has systolic murmur -Blood glucose normal on arrival -Echo: showed LVot obstruction with systolic anterior motion of mitral valve with no RWMA and Ef of 70-75% -Carotid doppler shows 50-69% stenosis with anterograde flow. -Appreciate cardio consult- from LVOT obstruction ppt by dehydration -talked with Dr. davidson and patient can follow up as an outpatient for event monitor and stress echo (2) Elevated troponin Status: Acute Code(s): R79.89 - OTHER SPECIFIED ABNORMAL FINDINGS OF BLOOD CHEMISTRY SNOMED Code(s): 150307670 Comment: -Downtrending now. -Could be from demand ischemia; given LVOT obstruction -Echo: showed LVot obstruction with systolic anterior motion of mitral valve with no RWMA and Ef of 70-75% -Asymptomatic at present (3) Anemia Status: Acute Code(s): D64.9 - ANEMIA, UNSPECIFIED SNOMED Code(s): 950050981 Comment: -He has chronic normocytic anemia. -Iron studies shows normal iron and ferrritin with low TIBC -can follow up as an outpatient with PCP (4) Hypomagnesemia Status: Acute Code(s): E83.42 - HYPOMAGNESEMIA SNOMED Code(s): 531016972 Comment: -repleted (5) Hypertension Status: Acute Code(s): I10 - ESSENTIAL (PRIMARY) HYPERTENSION SNOMED Code(s) : 21683034 Comment: -BP on higher side. -Continue Amlodipine 2.5 mg -We will add metoprolol tartate 12.5 mg BID -Goal<130/80 mm Hg (6) DVT prophylaxis Status: Acute Code(s): Z29.9 - ENCOUNTER FOR PROPHYLACTIC MEASURES, UNSPECIFIED SNOMED Code(s): 142439840 Comment: -on lovenox (7) Full code status Status: Acute Code(s): Z78.9 - OTHER SPECIFIED HEALTH STATUS SNOMED Code(s) : 315652485 Status and Disposition: Inpatient Cardio following dc today Attending: Aurora Bedolla Attestation Documenting Resident: Jonathan Reyes Supervising Physician: Aurora Bedolla Attending/Supervising Physician Comment: Pt symptoms resolved and eager to return home. Cardiology service thought weakness and elevated trop was from known LVOT obstruction in setting of dehydration. Pt has close cardiology follow up with Dr. Jaramillo, and recently had stress testing and echo. Pt may have had a viral syndrome preceding this, which caused him to feel weaker and have poorer PO intake, as his WBC was very mildly elevated. However, he had no focal symptoms of infection and his generalized symptoms quickly resolved with IVF. Attestation: This service has been performed in part by a resident under the direction of a teaching physician.I, Aurora Bedolla, performed the service, or was physically present during the critical, or hensley portions of the service, furnished by the resident. I participated in the management of the patient.
[2019-01-26] MEDS ORDERED: amLODIPine TAB* 5 MG PO SCH (09:00)
[2019-01-26 09:51] LABS: % Iron Saturation 28 % (15-55); Ferritin 52.4 ng/mL (24-336); Iron 69 ug/dL (50-212); Total Iron Binding Capacity 245 mcg/dL (250-450); Transferrin 175 mg/dL (203-362)
[2019-01-26] MEDS: Atorvastatin* 20 MG TAB PO SCH (10:27)
[2019-01-26] MEDS: Aspirin EC TAB* 81 MG TAB.EC PO SCH (10:27)
[2019-01-26] MEDS: Metoprolol Tartrate TAB* 25 MG PO SCH (10:29)
[2019-01-26 11:59] VITALS: BP 140/52
--- NOTE | 2019-01-26 18:25 | DS ---
CC: Inderjit Banegas MD * DISCHARGE SUMMARY: DATE OF ADMISSION: 01/24/19 DATE OF DISCHARGE: 01/26/19 PRIMARY CARE PHYSICIAN: Inderjit Banegas MD. PRIMARY DIAGNOSES: 1. Syncope, possibly related to dehydration. 2. Left ventricular outflow tract obstruction. SECONDARY DIAGNOSES: 1. Coronary artery disease, status post coronary artery bypass grafting. 2. Hypertension. 3. Prostate cancer, status post prostatectomy. CONSULTS: Dr. Iveth Hernandes of Cardiology. DISCHARGE MEDICATIONS: 1. Aspirin 81 mg daily. 2. Atorvastatin 20 mg daily. 3. Amlodipine 2.5 mg daily. 4. Metoprolol succinate 25 mg daily. HISTORY OF PRESENT ILLNESS: Mr. Altamirano is an 88-year-old man with CAD, status post CABG; hypertension; prostate cancer, status post prostatectomy, who came in after experiencing a syncopal episode. The patient stated that he had been feeling unwell and tired on the day of presentation and then during dinner time, he became diaphoretic, pale, lightheaded and felt as though he would pass out. The patient states that he did not adequately hydrate himself over the last 2 to 3 days, but denied nausea, vomiting, diarrhea. At approximately 7 p.m. on the day of discharge, he sat down to eat dinner and experienced a syncopal episode witnessed by his who called 911. The patient states he does not remember much of the EMS ride to [facility], but states that he did feel weak and lightheaded after the syncopal episode. Of note, the patient is following with Dr. Jaramillo in [facility]iology [facility] and had been noticing generalized weakness over the last several months. He recently had a stress echocardiogram in November 2018, which noted 70% ejection fraction with mild left ventricular hypertrophy. There was grade 2 diastolic dysfunction , positive TONE. LVOT velocity was increased to 1.8 mps with evidence of a sigmoid septum. An exercise nuclear stress from that month showed 1 to [address]-segment depressions which returned to baseline around 5 minutes into recovery. Myocardial perfusion imaging revealed a mild defect that was fixed with mild severity in the [id number]-[id number] anterior wall. It appears in 2012 , an exercise stress echo showed hypokinesis involving the LAD territory. HOSPITAL COURSE; In the emergency room, the patient was noted to have an elevated troponin, so he was started on a heparin drip. The patient reported that he felt back to his baseline, denying weakness or chest pain. The patient was continued on his home aspirin and statin. Cardiology was consulted and reported that his troponin elevation was likely from structural heart abnormalities. It was felt that his syncopal episode was due to poor oral hydration and recommended that his heparin drip be discontinued. It was thought his LVOT obstruction may have been exacerbated from mild dehydration. Cardiology [employer]IC [employer]PER discussed the case with Interventional Cardiology who noted October exercise nuclear stress test was felt to be consistent with known coronary artery disease and they were not planning on catheterization at this time. Cardiology team initiated beta- erasmo for improved filling time and cardiac protection and recommended an increased oral hydration. Cardiology consult also recommended outpatient event monitor with possible outpatient stress echo or dobutamine stress to look for dynamic LVOT obstruction in addition to wall motion abnormalities. Throughout hospitalization, the patient denied focal infectious symptoms. He was seen and evaluated by physical therapy. He was able to ambulate around the unit 3 times without any assistive device and he was discharged from the PT program. He was eager to return home and denied 10- point review of systems. DIAGNOSTIC STUDIES/LAB DATA: CBC notable for mild leukocytosis, which resolved to 8.5 without intervention. Anemia with Hgb 11, which is near the patient's baseline, with MCV of 93. BMP unremarkable. Troponin peaked at 0.47 with CK-MB mild elevation at 6.4 peak. LDL 54 with HDL 34 and triglycerides 50. TSH 2.24. UA notable only for 1+ ketones. EKG with normal sinus rhythm, possible submillimeter ST depressions in the lateral lead. Chest x-ray with postsurgical changes, no evidence of acute findings. Transthoracic echocardiogram with LV cavity size moderately reduced and wall thickness mildly increased. There is prominent septal knuckle measuring 1.5 cm. There is turbulence in the left ventricular outflow tract with mild chordal systolic anterior motion of the mitral valve and no dagger profile. Systolic function is hypodynamic with estimated EF 70% to 75%. Doppler parameters are consistent with elevated ventricular diastolic filling measures. RV systolic function normal. Mitral valv,e posterior annulus appears moderately calcified. The leaflets are mildly thickened. There is [id number] regurg with mean diastolic gradient of 4. Aortic valve findings are consistent with mild stenosis. Compared with prior echo last month small LV cavity size is new. EF is stable. LV outflow tract turbulence and peak velocity are stable. AI previously reported as mid to moderate, mitral regurg is stable. MVA previously estimated at 2.2 cm2. Bilateral carotid ultrasound with 50% to 69% stenosis in the mid ICA bilaterally by NASCET criteria. DISCHARGE PLAN: The patient will be discharged home and should follow up with his primary care physician. He also has an appointment with Dr. Jaramillo of Cardiology next week. He should continue with home medications as before, with the addition of a beta-erasmo. He was encouraged to maintain adequate hydration with increased oral fluids and to eat healthy diet, low in processed foods and resume activity as tolerated. He was educated on return precautions, which include but are not limited to lightheadedness, chest pain, or syncope. DISPOSITION: To home. CONDITION: Improved. TIME SPENT: Approximately 60 minutes was spent on discharge of this patient, more than half of which was spent with care coordination at bedside for interview and exam. [id number]/[facility] #: [id number] BOBBY
[2019-01-26] MEDS ORDERED: Enoxaparin(*) 40 MG/0.4 ML SYR SUBCUT SCH (21:00)
== END 2019-01-26 14:40 | disposition home or self-care (01) | DRG 422 ==
LOC: ED 20:21 → MEDTELE 23:52
PROVIDERS: ADMIT Internal Medicine; ATTEND Internal Medicine
DX: E86.0 Dehydration (principal); I42.1 Obstructive hypertrophic cardiomyopathy; I43 Cardiomyopathy in diseases classified elsewhere; R55 Syncope and collapse; I25.10 Atherosclerotic heart disease of native coronary artery without angina pectoris; R79.89 Other specified abnormal findings of blood chemistry; I08.0 Rheumatic disorders of both mitral and aortic valves; I65.23 Occlusion and stenosis of bilateral carotid arteries; E78.5 Hyperlipidemia, unspecified; M19.90 Unspecified osteoarthritis, unspecified site; H91.90 Unspecified hearing loss, unspecified ear; D64.9 Anemia, unspecified; E83.42 Hypomagnesemia; I11.9 Hypertensive heart disease without heart failure; Z95.1 Presence of aortocoronary bypass graft; Z85.46 Personal history of malignant neoplasm of prostate; Z90.79 Acquired absence of other genital organ(s); Z79.82 Long term (current) use of aspirin; Z79.899 Other long term (current) drug therapy; Z87.891 Personal history of nicotine dependence; Z28.21 Immunization not carried out because of patient refusal
CPT/HCPCS: 36415; 71046; 80048; 80053; 80061; 81003; 82550; 82553; 82565; 82728; 83540; 83550; 83605; 83735; 84443; 84484; 84520; 85025; 85730; 93005; 93306; 93880; 96360; 99284; A9270-GY; G8978-GP-CH; G8979-GP-CH; G8980-GP-CH; J1644; J3475